=== PATIENT | male | born 1990 ===

== ENCOUNTER 2024-09-23 15:35 | Emergency (ER) | payer OTHER, SELFPAY ==
[2024-09-23 15:40] VITALS: BP 155/98; PULSE 89; RESP 16; TEMP 37.3; O2SAT 99; BMI 26.5
--- NOTE | 2024-09-23 15:47 | ECG_ITS ---
[facility]: 2024-09-23 Pat Name: Elvin Burgos Department: Room: Gender: Male Non Profit Financial Controller: : 1990 Requested By: Vicky Richards Order Number: [id number] Rick MD: Luis Barton M.D. Measurements Intervals Volin Rate: 84 P: 73 CO: 137 QRS: 98 QRSD: 78 T: -11 QT: 350 QTc: 414 Interpretive Statements SINUS RHYTHM BORDERLINE RIGHT AXIS DEVIATION [QRS AXIS > 90] NONSPECIFIC T-WAVE ABNORMALITY No previous ECG available for comparison Electronically Signed On 09-24-2024 20:07:02 CABLE INSTALLER REPAIRER by Luis Barton M.D. [email or web address]
--- NOTE | 2024-09-23 17:31 | XRR_ITS ---
PROCEDURE INFORMATION: Exam: XR Left Ribs with PA Chest Exam date and time: 09/23/2024 5:34 PM Age: 34 years old Clinical indication: Injury or trauma; Rib area, left side; Blunt trauma; Patient HX: Lt posterior lower rib pain post fall x 3 days ago; Worsening today with inspiration TECHNIQUE: Imaging protocol: Radiologic exam of the left ribs with PA chest. Views: 3 views COMPARISON: No relevant prior studies available. FINDINGS: Lungs: Unremarkable. No consolidation. Pleural spaces: Unremarkable. No pleural effusion. No pneumothorax. Heart/Mediastinum: Unremarkable. No cardiomegaly. Bones/joints: Mild dextrocurvature of the thoracolumbar junction. No displaced rib fracture or other acute osseous abnormality. XR/XR ribs LT mn 3V w [id number] IMPRESSION: No acute plain radiographic cardiopulmonary or osseous abnormality. No displaced rib fracture identified at this time. Follow-up may be considered in 2 weeks to assess for developing callus around any occult rib fractures, if clinically warranted.
[2024-09-23] MEDS: ketorolac 30 mg/mL INJ IM (17:38)
--- NOTE | 2024-09-23 18:26 | W.ED.BACK ---
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 Onset of symptoms Yesenia Annemarie when he had a slip and fall. He fell landing on the wood [employer] steps. He was able to get up and has been managing his symptoms at home. Unfortunately, he can no longer tolerate the pain. Pain is worse with movement He denies shortness of breath It is just off midline in his mid thoracic spine but also has lateral chest wall pain. Denies fever, chills Denies striking his head or loss of consciousness Denies any other muscle, extremity, joint pain Related Data Previous Rx's Medication Instructions Recorded ketorolac 10 mg tablet 10 mg PO TID PRN pain 5 days #20 09/23/24 tabs methocarbamol 500 mg tablet 500 mg PO Q6H Muscle spasms #30 09/23/24 tabs methylprednisolone 4 mg tablets in See Rx Instructions PO .COMPLEX 09/23/24 a dose pack (Medrol (Francisco Javier)) #21 ea Allergies Allergy/AdvReac Type Severity Reaction Status Date / Time No Known Allergies Allergy Verified 09/23/24 15:44 Review of Systems General: Reports: 10 or more systems reviewed and unremarkable except in HPI and below Physical Exam Const: COMMON NORMALS: no acute distress, patient oriented x3 and alert GENERAL APPEARANCE: cooperative ORIENTATION/CONSCIOUSNESS: Yes awake, Yes oriented to person, Yes oriented to place and Yes oriented to time Neck/C-Spine: COMMON NORMALS: full ROM GENERAL: Yes normal visual inspection Lymph: LYMPHATIC: no lymphadenopathy noted Chest: COMMONS NORMALS: normal inspection of the chest Breast/axilla inspection: Yes no chest deformity, asymmetry, normal contours, no nodules, masses, tenderness Resp: COMMON NORMALS: normal respiratory effort, No retractions, No use of accessory muscles and clear to auscultation bilaterally EFFORT & INSPECTION: Yes able to speak in complete sentences and Yes symmetric chest movement AUSCULTATION: clear to auscultation bilaterally Cardio: COMMON NORMALS: regular rate, regular rhythm and Peripheral pulses 2+ throughout RATE: regular rate RHYTHM: regular rhythm PERIPHERAL PULSES: Peripheral pulses 2+ throughout GI: COMMON NORMALS: Soft to palpation and non-tender INSPECTION: Yes normal to inspection PALPATION: Yes Soft to palpation RECTAL EXAM: Yes deferred Extremity: COMMON NORMALS: normal to inspection GENERAL: Yes normal exam except as noted Neuro: COMMON NORMALS: patient oriented x3 SENSORIUM/ORIENTATION: Yes alert, Yes oriented to person, Yes oriented to place and Yes oriented to time CRANIAL NERVES: Yes CN normal except as noted Psych: COMMON NORMALS: mental status grossly normal, Normal thought process present, cooperative, activity/motor behavior normal, denies homicidal ideation and denies suicidal ideation THOUGHT PROCESS: Normal thought process present Skin: COMMON NORMALS: no rashes or lesions noted, no wounds and turgor normal GENERAL SKIN EXAM: no rashes or lesions noted and turgor normal Course Vital Signs: Vital signs: Vital Signs Temperature 99.1 F 09/23/24 15:40 Pulse Rate 89 09/23/24 15:40 Respiratory Rate 16 09/23/24 15:40 Blood Pressure 155/98 09/23/24 15:40 Pulse Oximetry 99 09/23/24 15:40 Oxygen Delivery Me thod Room Air 09/23/24 15:40 MDM - Back Pain/Injury Medical Decision Making Patient was evaluated today in the emergency department after a fall that occurred on [facility]. Patient underwent XR imaging chest ribs which reveals no acute fracture, pneumothorax or other abnormality. He has tenderness along the lateral chest wall but also just off midline from his thoracic spine. Initially was given Toradol for his pain but he still had residual discomfort that seem to be muscular in nature. I gave him a dexamethasone injection and diazepam. 15 minutes after administration he reported that his symptoms had improved somewhat. Okay to discharge him home with instructions to follow-up with primary care if he is not better in 2 weeks. We are going to send him with prescriptions. He should return to the emergency department for new concerning or worsening symptoms Labs Radiology Impressions Ribs X-Ray 09/23/24 17:31 IMPRESSION: No acute plain radiographic cardiopulmonary or osseous abnormality. No displaced rib fracture identified at this time. Follow-up may be considered in 2 weeks to assess for developing callus around any occult rib fractures, if clinically warranted. All radiology interpretation(s) finalized by discharge Discharge Plan Discharge Patient Disposition: Home Clinical Impression: Acute chest wall pain Condition: Stable Prescriptions: New ketorolac 10 mg tablet 10 mg PO TID PRN (Reason: pain) 5 Days Qty: 20 0RF Rx Instructions: Do not take additional nonsteroidal anti-inflammatory drugs while taking this medication methocarbamol 500 mg tablet 500 mg PO Q6H Qty: 30 0RF methylprednisolone [Medrol (Francisco Javier)] 4 mg tablets,dose pack See Rx Instructions .ROUTE .COMPLEX Qty: 21 0RF Rx Instructions: for 6 days Discharge Orders: Discharge ED (Routine); Ordered 09/23/24 Ordered By: Vicky Urbina Discharge Diet: Advance as tolerated Discharge Activity: Resume usual activity Patient Instructions: Chest Wall Pain (ED), Pain Management Activity Restrictions/Additional Instructions: Please take medications as prescribed Please return to the emergency department for new concerning or worsening symptoms Coding Level of Care Code ED Certified Bench Jeweler Technician for Jose Luis Solorio
[2024-09-23] MEDS: dexamethasone 10 mg/mL INJ IM (18:38)
[2024-09-23] MEDS: diazePAM 5 mg Tablet PO (18:38)
[2024-09-23 19:15] VITALS: BP 153/81; PULSE 81; O2SAT 99
== END 2024-09-23 19:16 | disposition home or self-care (01) ==
PROVIDERS: Emergency Provider Nurse Practitioner
DX: R07.89 Other chest pain (principal)
CPT/HCPCS: 71101; 93005; 96372; 99284; J1100; J1885